=== PATIENT | female | born 1960 | race Caucasian/White ===

== ENCOUNTER → 2017-04-19 | Outpatient (CLI) | payer BC ==
[~2017-04-19] MED LIST: CHOL100010 PO; CLR10 PO; FLUT0.0529 NAE; LISI-461 PO; METF500T5 PO; MULT-506 PO; PRLSR20 PO
== END | disposition home or self-care (01) ==
LOC: C.PAPS 08:03
PROVIDERS: ATTEND Obstetrics & Gynecology
DX: Z01.419 Encounter for gynecological examination (general) (routine) without abnormal findings (principal)

== ENCOUNTER → 2017-04-28 | Outpatient (CLI) | payer BC ==
--- NOTE | 2017-05-03 10:16 | MAMMOGRAPHY REPORT ---
BILATERAL DIGITAL SCREENING MAMMOGRAM TOMOSYNTHESIS WITH CAD: 04/28/2017 CLINICAL HISTORY: Routine screening. Patient has no complaints. TECHNIQUE: Breast tomosynthesis in addition to standard 2D mammography was performed. Current study was also evaluated with a Computer Aided Detection (CAD) system. COMPARISON: Comparison is made to exams dated: 04/16/2016 mammogram, 04/15/2015 mammogram, 04/12/2014 m ammogram, 04/10/2013 mammogram, 10/21/2012 mammogram, and 04/12/2012 mammogram - [facility]. BREAST COMPOSITION: There are scattered areas of fibroglandular density in both breasts. FINDINGS: No suspicious masses, calcifications, or areas of architectural distortion are noted in ei ther breast. There has been no significant interval change compared to prior exams. Scattered bilater al benign-appearing calcifications are not significantly changed. IMPRESSION: ACR BI-RADS CATEGORY 2: BENIGN There is no mammographic evidence of malignancy. A 1 year screening mammogram is recommended. The pa tient will receive written notification of the results. Approximately 10% of breast cancers are not detected with mammography. A negative mammographic report should not delay biopsy if a clinically suggestive mass is present. Annie Amaral M.D. /:04/28/2017 15:53:11 Lump Room Supervisor: Shayy SMITH)(M), [facility] letter sent: Normal 1/2 BI-RADS Code: ACR BI-RADS Category 2: Benign
== END | disposition home or self-care (01) ==
LOC: C.MAMM 15:09
PROVIDERS: ATTEND Obstetrics & Gynecology
DX: Z12.31 Encounter for screening mammogram for malignant neoplasm of breast (principal)

== ENCOUNTER → 2017-06-15 | Outpatient (CLI) | payer BC ==
[2017-06-15 12:27] LABS: BASO % 0.4 %; BASO ABS # 0.04 K/uL (0-0.2); COMPLETE YES; EOS % 2.1 %; HEMATOCRIT 42.2 % (37-47); IG% 0.2 %; LYMPH % 24.6 %; LYMPH ABS # 2.38 K/uL (1.2-3.4); MEAN CELL VOLUME 92.1 fL (80-100); MEAN CORPUSCULAR HEMOGLOBIN 29.3 pg (25-34); MEAN CORPUSCULAR HGB CONC 31.8 g/dl (32-36); MONO % 6.7 %; PLATELET COUNT 320 K/uL (130-400); RED BLOOD COUNT 4.58 M/uL (4.2-5.4); WHITE BLOOD COUNT 9.66 K/uL (4.8-10.8)
[2017-06-15 12:47] LABS: ESTIMATED AVERAGE GLUCOSE 148 mg/dl; HA1C FLAG Normal (Normal)
[2017-06-15 12:48] LABS: ALT/SGPT 28 U/L (12-78); AST/SGOT 20 U/L (15-37); BLOOD UREA NITROGEN 13 mg/dl (7-18); BUN/CREATININE RATIO 18.2 (10-20); CALCIUM 9.1 mg/dl (8.5-10.1); CARBON DIOXIDE 26 mmol/L (21-32); CHLORIDE 104 mmol/L (98-107); CREATININE 0.73 mg/dl (0.60-1.20); GLUCOSE 121 mg/dl (70-99); SODIUM 139 mmol/L (136-145)
[2017-06-15 12:51] LABS: ALB/GLOB RATIO 0.9 (0.9-2); ALKALINE PHOSPHATASE 66 U/L (45-117); CHOLESTEROL 154 mg/dl (0-200); CHOLESTEROL/HDL RATIO 3.3; HDL CHOLESTEROL 47 mg/dl; LDL CHOLESTEROL CALCULATED 70 mg/dl; TRIGLYCERIDES 185 mg/dl (0-150); VERY LOW DENSITY LIPOPROT CALC 37 mg/dl
[2017-06-15 12:57] LABS: RATIO 13.7 mcg/mg (0-30.0)
[2017-06-15 12:59] LABS: URINE APPEARANCE TURBID (CLEAR); URINE BILIRUBIN NEG (NEG); URINE COLOR DK YELLOW; URINE EPITHELIAL CELL AUTO >30 /lpf (0-5); URINE NITRITE NEG (NEG); URINE PH 5.5 (4.5-7.5); URINE SPECIFIC GRAVITY 1.025 (1.000-1.030); UROBILINOGEN NEG (NEG); ZZUR CULT IF INDIC CLEAN CATCH YES
[2017-06-15 13:06] LABS: MANUAL MICROSCOPIC REQUIRED? NO; REVIEW REQ? NO
== END | disposition home or self-care (01) ==
LOC: C.LABBFT 08:00
PROVIDERS: ATTEND Physician Assistant Medical
DX: E55.9 Vitamin D deficiency, unspecified (principal)

== ENCOUNTER → 2017-06-25 | Outpatient (CLI) | payer BC | END | disposition home or self-care (01) | LOC: C.LABSPEC 14:41 | PROVIDERS: ATTEND Urology | DX: N39.0 Urinary tract infection, site not specified (principal) ==

== ENCOUNTER 2018-07-13 09:38 | Emergency (ER) | payer OTHER ==
[~2018-07-13] VITALS: Ht 152.4 cm; Wt 117.8 kg
[~2018-07-13 09:38] MED LIST changes: -CLR10 PO; -LISI-461 PO; -METF500T5 PO; -MULT-506 PO
[2018-07-13 09:46] VITALS: Ht 152.4 cm; Wt 117.8 kg
[2018-07-13] MEDS ORDERED: METF500T5 PO (09:59)
[2018-07-13] MEDS ORDERED: LISI-461 PO (09:59)
[2018-07-13] MEDS ORDERED: CLR10 PO (10:01)
[2018-07-13 10:10] VITALS: O2SAT 96
--- NOTE | 2018-07-13 10:27 | DIAGNOSTIC IMAGING REPORT ---
CHEST ONE VIEW PORTABLE CLINICAL HISTORY: 58 years-old Female presenting with Chest Pain. TECHNIQUE: Portable upright AP view of the chest was obtained. COMPARISON: 02/22/2014. FINDINGS: Cardiac silhouette mildly enlarged, unchanged. No focal opacity. No large effusion or pneumothorax. Degenerative changes of the thoracic spine. Upper abdomen normal. IMPRESSION: 1. Mild cardiomegaly. No other convincing evidence of acute cardiopulmonary disease. Electronically signed by: Alf Gruber M.D. 07/13/2018 10:25 AM Dictated Date/Time: 07/13/2018 10:24 AM
[2018-07-13 10:28] LABS: BASO % 0.3 %; BASO ABS # 0.04 K/uL (0-0.2); EOS % 1.4 %; EOS ABS # 0.17 K/uL (0-0.5); HEMATOCRIT 40.6 % (37-47); HEMOGLOBIN 13.9 g/dL (12.0-16.0); IG# 0.06 K/uL (0.00-0.02); LYMPH % 20.3 %; LYMPH ABS # 2.42 K/uL (1.2-3.4); MEAN CELL VOLUME 89.8 fL (80-100); MEAN CORPUSCULAR HEMOGLOBIN 30.8 pg (25-34); MEAN CORPUSCULAR HGB CONC 34.2 g/dl (32-36); MEAN PLATELET VOLUME 9.4 fL (7.4-10.4); MONO % 6.8 %; MONO ABS # 0.81 K/uL (0.11-0.59); NEUT % 70.7 %; NEUT ABS # 8.41 K/uL (1.4-6.5); PLATELET COUNT 281 K/uL (130-400); RED CELL DISTRIBUTION WIDTH CV 13.5 % (11.5-14.5); RED CELL DISTRIBUTION WIDTH SD 44.1 fL (36.4-46.3); WHITE BLOOD COUNT 11.91 K/uL (4.8-10.8)
[2018-07-13 10:56] LABS: BLOOD UREA NITROGEN 17 mg/dl (7-18); CALCIUM 9.5 mg/dl (8.5-10.1); CARBON DIOXIDE 26 mmol/L (21-32); CREATININE 0.79 mg/dl (0.60-1.20); GLUCOSE 119 mg/dl (70-99)
[2018-07-13 11:08] LABS: POTASSIUM 4.6 mmol/L (3.5-5.1); SODIUM 137 mmol/L (136-145)
[2018-07-13 11:20] LABS: CKMB < 1.0 ng/ml (0.5-3.6)
[2018-07-13] MEDS ORDERED: CHOL100010 PO (11:25)
[2018-07-13] MEDS ORDERED: AMOX500C3 PO (11:25)
[2018-07-13] MEDS ORDERED: FLUT0.15 NAE (11:25)
[2018-07-13 12:29] VITALS: BP 137/83; PULSE 93; TEMP 36.6; O2SAT 96
--- NOTE | 2018-07-13 16:40 | EMERGENCY ROOM VISIT NOTE ---
History Report prepared by Shannan: Lyndsay Haque Under the Supervision of: Dr. Sam Sandoval D.O. First contact with patient: 09:54 Chief Complaint: CHEST PAIN Stated Complaint: LEFT SIDE CHEST PAIN Nursing Triage Summary: pain in left chest. ongoing for the past 2 weeks. pt reoprts worsening. at times feels diaphoretic and flushed. 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 She reports her pain never goes away, but her chest pain has worsened which is why she came to the ED today. She describes her pain as a dull ache and movement worsens her pain. She has some unassociated nausea but denies any arm pain. She denies any jaw pain. She notes that the pain is worsened with rotation of her head to the right and lifting of her left arm. It is also worsened upon palpation and tracks up over her shoulder and into her back as well. Twisting turning and bending also worsens the pain. Laying still significantly improves the pain. Patient has diabetes and hypertension but denies hyperlipidemia, CAD, history of sudden at a young age, and smoking. Patient denies swelling of calves, recent trips, history of immobilization or recent surgery, prior history of DVT , hemoptysis, history of malignancy, history of smoking, or control/ estrogen use. 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 Past Medical & Surgical Medical Problems: (1) Diabetes (2) Heart disease (3) High blood pressure Family History Cancer FH: diabetes mellitus FH: heart disease Social History Smoking Status: Never Smoker Alcohol Use: occasionally Drug Use: none Marital Status: single Housing Status: lives alone Occupation Status: employed Current/Historical Medications Scheduled Amoxicillin (Amoxil), 1,000 MG PO TID Cholecalciferol (Vitamin D), 2,000 UNITS PO DAILY Lisinopril (Zestril), 10 MG PO QAM Loratadine (Claritin), 10 MG PO QAM Metformin Hcl Er (Glucophage Er), 1,000 MG PO BID Multivitamin (Multivitamin), 1 TAB PO QAM Scheduled PRN Fluticasone Propionate (Nasal) (Flonase Allergy Relief), 1 SPRAY BENJY DAILY PRN for Seasonal Allergies Allergies Coded Allergies: Sulfamethoxazole w/Trimethoprim (Verified Allergy, Intermediate, RASH, ) Physical Exam Vital Signs Date Time Temp Pulse Resp B/P (MAP) Pulse Ox O2 Delivery O2 Flow Rate FiO2 07/13/18 12:29 36.6 93 20 137/83 96 Room Air 07/13/18 12:29 36.6 93 20 101/45 96 07/13/18 10:30 93 07/13/18 10:10 96 Room Air 07/13/18 09:54 Room Air 07/13/18 09:46 36.6 101 20 101/45 98 Room Air Physical Exam GENERAL: Sitting up in bed, alert, well appearing, well nourished, no distress, non-toxic EYE EXAM: normal conjunctiva. OROPHARYNX: no exudate, no erythema, lips, buccal mucosa, and tongue normal and mucous membranes are moist NECK: supple, no nuchal rigidity, no adenopathy, non-tender LUNGS: Clear to auscultation. Normal chest wall mechanics HEART: no murmurs, S1 normal and S2 normal CHEST: Reproducible left anterior chest wall tenderness just left of sternum/ rib 4, tracking up towards clavicle and to medial posterior angle of scapula. Worse with rotation of the neck to the R, ABduction of left arm and external rotation. ABDOMEN: abdomen soft, non-tender, normo-active bowel sounds, no masses, no rebound or guarding. BACK: Back is symmetrical on inspection and there is no deformity, no midline tenderness, no CVA tenderness. SKIN: no rashes and no bruising UPPER EXTREMITIES: upper extremities are grossly normal. LOWER EXTREMITIES: No pitting edema. NEURO EXAM: Normal sensorium, cranial nerves II-XII intact, normal speech, no gross weakness of arms, no gross weakness of legs. Medical Decision & Procedures ER Provider Diagnostic Interpretation: Radiology results as stated below per my review and the radiologist's interpretation: CHEST ONE VIEW PORTABLE CLINICAL HISTORY: 58 years-old Female presenting with Chest Pain. TECHNIQUE: Portable upright AP view of the chest was obtained. COMPARISON: 02/22/2014. FINDINGS: Cardiac silhouette mildly enlarged, unchanged. No focal opacity. No large effusion or pneumothorax. Degenerative changes of the thoracic spine. Upper abdomen normal. IMPRESSION: 1. Mild cardiomegaly. No other convincing evidence of acute cardiopulmonary disease. Electronically signed by: Alf Gruber M.D. 07/13/2018 10:25 AM Laboratory Results 07/13/18 10:10 Red Blood Count 4.52, Mean Corpuscular Volume 89.8, Mean Corpuscular Hemoglobin 30.8, Mean Corpuscular Hemoglobin Concent 34.2, Mean Platelet Volume 9.4, Neutrophils (%) (Auto) 70.7, Lymphocytes (%) (Auto) 20.3, Monocytes (%) (Auto) 6.8, Eosinophils (%) (Auto) 1.4, Basophils (%) (Auto) 0.3, Neutrophils # (Auto) 8.41, Lymphocytes # (Auto) 2.42, Monocytes # (Auto) 0.81, Eosinophils # (Auto) 0.17, Basophils # (Auto) 0.04 07/13/18 10:10 Test 07/13/18 10:04 07/13/18 10:10 Creatine Kinase MB Ratio (0-3.0) White Blood Count 11.91 K/uL (4.8-10.8) Red Blood Count 4.52 M/uL (4.2-5.4) Hemoglobin 13.9 g/dL (12.0-16.0) Hematocrit 40.6 % (37-47) Mean Corpuscular Volume 89.8 fL (80-100) Mean Corpuscular Hemoglobin 30.8 pg (25-34) Mean Corpuscular Hemoglobin Concent 34.2 g/dl (32-36) Platelet Count 281 K/uL (130-400) Mean Platelet Volume 9.4 fL (7.4-10.4) Neutrophils (%) (Auto) 70.7 % Lymphocytes (%) (Auto) 20.3 % Monocytes (%) (Auto) 6.8 % Eosinophils (%) (Auto) 1.4 % Basophils (%) (Auto) 0.3 % Neutrophils # (Auto) 8.41 K/uL (1.4-6.5) Lymphocytes # (Auto) 2.42 K/uL (1.2-3.4) Monocytes # (Auto) 0.81 K/uL (0.11-0.59) Eosinophils # (Auto) 0.17 K/uL (0-0.5) Basophils # (Auto) 0.04 K/uL (0-0.2) RDW Standard Deviation 44.1 fL (36.4-46.3) RDW Coefficient of Variation 13.5 % (11.5-14.5) Immature Granulocyte % (Auto) 0.5 % Immature Granulocyte # (Auto) 0.06 K/uL (0.00-0.02) Anion Gap 6.0 mmol/L (3-11) Est Creatinine Clear Calc Drug Dose 91.2 ml/min Estimated GFR () 95.6 Estimated GFR (Non- 82.5 BUN/Creatinine Ratio 21.0 (10-20) Calcium Level 9.5 mg/dl (8.5-10.1) Total Creatine Kinase 66 U/L (26-192) Creatine Kinase MB < 1.0 ng/ml (0.5-3.6) Troponin I < 0.015 ng/ml (0-0.045) Chemistry Specimen Hemolysis Laboratory results per my review. ECG Per My Interpretation Indication: chest pain Rate (beats per minute): 92 Rhythm: normal sinus Findings: other (normal axis, no PVCs) Comparison ECG Date: 10/02/15 Change: no significant change ED Course ED COURSE: Vital signs were reviewed and showed Tachy The patients medical record was reviewed The above diagnostic studies were performed and reviewed. ED treatments and interventions as stated above. 0955: The patient was evaluated in room C9. A complete history and physical examination was performed. 1139: I checked on the patient at this time. She is resting comfortably. 1141: Upon reevaluation, the patient is feeling better. I discussed my findings with the patient and she understands and agrees with the treatment plan. Based on the patients age, coexisting illnesses, exam and lab findings the decision to treat as an outpatient was made. The patient remained stable while under my care. The patient appeared well at the time of discharge. Medical Decision Differential diagnoses includes but is not limited to acute coronary syndrome, myocardial infarction, pericarditis, pulmonary embolus, aortic dissection, pneumonia, pneumothorax, musculoskeletal, shingles, esophageal. Patient is a 50-year-old female who presents the ER for 2 weeks of chest pain. Pain is reproducible on exam with movement of the left upper extremity and on palpation. It improved significantly with rest. She has no change with breathing. She does have a history of diabetes and hypertension. EKG was nondiagnostic. Troponin was negative with pain greater than 8 hours. Do not believe that this is a PE as it is clearly reproducible. I do favor likely muscle skeletal. CBC and BMP was unremarkable along with a troponin as stated above. Patient was updated at bedside and discharged with muscle skeletal chest pain to take NSAIDs as an outpatient. Discussed with Pt concerning signs and symptoms to watch out for. Pt was instructed to follow up with their PCP and discussed with the patient their option to return to the ED at anytime for persistent or worsening symptoms. The appropriate anticipatory guidance and out- patient management, including indications for return to the emergency department , were explained at length to the patient and understood. Medication Reconcilliation Current Medication List: was personally reviewed by me Blood Pressure Screening Patient's blood pressure: Normal blood pressure Blood pressure disposition: Did not require urgent referral Impression Primary Impression: Chest wall pain Scribe Attestation The scribe's documentation has been prepared under my direction and personally reviewed by me in its entirety. I confirm that the note above accurately reflects all work, treatment, procedures, and medical decision making performed by me. Departure Information Referrals Eliel Bunn M.D. (PCP) Patient Instructions [facility] Additional Instructions Please follow up with your primary care doctor with in the next 24 hours. Any worsening of your symptoms, please return to the ED immediately. This includes any fevers greater than 100.4, worsening pain, chest pain, shortness breath, persistent nausea, vomiting, unable to eat or drink, or any other concerning signs or symptoms from your standpoint. Please take Tylenol or Motrin as needed for pain.
[2018-07-13] MEDS ORDERED: MULT-506 PO (18:27)
== END 2018-07-13 12:31 | disposition home or self-care (01) ==
LOC: C.EDB 09:39 → C.EDC 12:31
DX: R07.89 Other chest pain (principal); R11.0 Nausea; E11.9 Type 2 diabetes mellitus without complications; I11.9 Hypertensive heart disease without heart failure; Z79.84 Long term (current) use of oral hypoglycemic drugs; Z79.899 Other long term (current) drug therapy; Z88.2 Allergy status to sulfonamides